=== PATIENT | male | born 1960 | race Caucasian/White ===

== ENCOUNTER 2017-03-29 13:02 | Emergency (ER) | payer SELFPAY ==
[~2017-03-29 13:02] MED LIST: BACT800T5 PO; CEPH500T PO
[2017-03-29 13:05] VITALS: BP 121/60; PULSE 98; RESP 15; TEMP 98.2; O2SAT 99
--- NOTE | 2017-03-29 13:11 | PD ---
Physical Exam Date Seen by Provider: Mar 29, 2017 Time Seen by Provider: 13:09 Narrative 56-year-old male presents to [facility] department with injury to the right second and third toes after "dropping a log on it" proximal to weeks ago. Patient feels that they may be infected. Pain is getting worse with increased swelling, erythema, and pus. Pain is currently an 8 out of 10. He denies fever or chills. He has no known drug allergies. Vital signs are stable. Patient is awaiting med bed placement. Data Data Last Documented VS Vital Signs Date Time Temp Pulse Resp B/P (MAP) Pulse Ox O2 Delivery O2 Flow Rate FiO2 03/29/17 13:05 98.2 98 15 121/60 (80) 99 MDM Medical Record Reviewed: Yes Supervised Visit with RTUDY: Yes Condition: Stable Carl Hall Mar 29, 2017 13:11
--- NOTE | 2017-03-29 13:24 | PD ---
HPI Chief Complaint: Skin Problem Time Seen by Provider: 13:18 Travel History International Travel<30 days: No Contact w/Intl Traveler<30days: No Traveled to known affect area: No History of Present Illness HPI Patient comes in complaining of worsening pain over the second and third toe right lower extremity after dropping a tree branch on it 2 weeks ago. He states he thought it would be fine however pain is getting progressively worse. Patient states he tried taking 2 ibuprofen for this with minimal relief of his symptoms. Pain is worse with walking. Patient reports pain is burning sensation radiates proximally. Patient thinks it may have drained some pus, but is uncertain. Patient is uncertain of his last tetanus shot. Denies any fevers or other known trauma. PFSH Past Medical History Hx Anticoagulant Therapy: No Arthritis: Yes (PT. STATED,"I HAVE A LITTLE ARTHRITIS IN MY LEFT ELBOW".) Asthma: No Autoimmune Disease: No Blood Disorders: No Heart Rhythm Problems: No Cancer: No Cardiovascular Problems: No High Cholesterol: No Chemotherapy: No Chest Pain: No Congestive Heart Failure: No COPD: No Cerebrovascular Accident: No Diabetes: No Diminished Hearing: Yes Gastrointestinal Disorders: No GERD: No Glaucoma: No Genitourinary: No Headaches: No Hepatitis: No Hiatal Hernia: No Heparin Induced Thrombocytopen: No Hypertension: No Immune Disorder: No Kidney Stones: No Musculoskeletal: Yes Neurologic: No Psychiatric: No Reproductive: No Respiratory: No Migraines: No Myocardial Infarction: No Radiation Therapy: No Renal Failure: No Seizures: No Sickle Cell Disease: No Sleep Apnea: No Thyroid Disease: No Ulcer: No Past Surgical History Abdominal Surgery: No AICD: No Appendectomy: No Arteriovenous Shunt: No Cardiac Surgery: No Cholecystectomy: No Endocrine Surgery: No Eye Surgery: No Genitourinary Surgery: No Gynecologic Surgery: No Insulin Pump: No Joint Replacement: No Neurologic Surgery: No Oral Surgery: No Pacemaker: No Thoracic Surgery: No Other Surgery: Yes (PT. STATED, "IN 2002 I HAD SURGER ON MY RIGHT INDEX FINGER ". ) Social History Alcohol Use: Yes (PT. STATED, "I HAVE A COUPLE OF BEERS A DAY".) Tobacco Use: Yes (PT. STATED,"I SMOKE A PACK OF CIGARETTES A DAY". ) Substance Use: No Allergies-Medications (Allergen,Severity, Reaction): Coded Allergies: No Known Allergies (Verified , 03/29/17) Reported Meds & Prescriptions Reported Meds & Active Scripts Active Naprosyn (Naproxen) 500 Mg Tab 500 Mg PO Q12HR PRN Keflex (Cephalexin) 500 Mg Cap 500 Mg PO Q8H Bactrim DS (Sulfamethoxazole-Trimethoprim) 800-160 Mg Tab 1 Tab PO BID Cephalexin 500 Mg Tab 500 Mg PO Q6H Bactrim DS (Sulfamethoxazole-Trimethoprim) 800-160 Mg Tab 1 Tab PO BID Review of Systems Except as stated in HPI: all other systems reviewed are Neg Physical Exam Narrative GENERAL: Well-developed, well nourished, in no acute distress, and non-ill appearing. SKIN: Focused skin assessment warm and dry. Patient has 2 healing lesions noted at the dorsal aspect of the second and third toe. There is mild erythematous noted. There is no crepitus or drainage. No fluctuation or induration. Patient reports tenderness to palpation. Neurovascular intact distally. HEAD: Atraumatic. Normocephalic. EYES: Pupils equal and round. EOMI. No scleral icterus. No injection or drainage. ENT: No nasal bleeding or discharge. Mucous membranes pink and moist. NECK: Trachea midline. Supple. No nuclear rigidity. CARDIOVASCULAR: Dorsal pulses 2+, intact, and equal bilaterally. Capillary refill less than 2 seconds. RESPIRATORY: No accessory muscle use. No respiratory distress. MUSCULOSKELETAL: No obvious deformities. No clubbing. No cyanosis. No edema. Full range of motion. NEUROLOGICAL: Awake and alert. No obvious cranial nerve deficits. Motor grossly within normal limits. Normal speech. PSYCHIATRIC: Appropriate mood and affect; insight and judgment normal. Data Data Last Documented VS Vital Signs Date Time Temp Pulse Resp B/P (MAP) Pulse Ox O2 Delivery O2 Flow Rate FiO2 03/29/17 14:20 03/29/17 13:05 98.2 98 15 99 Orders Orders Clindamycin Inj (Cleocin Inj) (03/29/17 13:30) Tetanus/Diphtheria Tox Adult (Tetanus/Di (03/29/17 13:30) Foot, Complete ([id number]) (03/29/17 ) [facility] Medical Decision Making Medical Screen Exam Complete: Yes Emergency Medical Condition: Yes Interpretation(s) Right foot x-ray read by the radiologist shows: No acute findings. Mild osteoarthritis of the right foot. Differential Diagnosis Osteomyelitis, gangrene, necrotizing fasciitis, wound infection, cellulitis, abscess, other Narrative Course The patient has cellulitis of his toes. There is no evidence of necrotizing fasciitis at this time. There is no evidence of abscess. There is no evidence of local joint space involvement. There is no evidence of deep venous thrombosis. The patient will be discharged on antibiotics. The patient was given signs and symptoms warnings for worsening infection, such as spreading of redness, increasing pain, and/or swelling, associated heat, or fever and instructed to return immediately if these signs or symptoms worsen. The patient is to follow up with physician in 2 days for recheck or return here in 2 days for recheck if unable to establish outpatient follow up. Sooner if worsens or as needed. The patient agrees with plan. Patient in no obvious distress upon re-evaluation. Radiology result(s) discussed with patient. Patient was asked if they wanted to speak to my attending, which the patient did not wish to do at this time. Any questions/ concerns in reference to patient diagnosis/condition discussed and clarified prior to patient's discharge. Reinforced sheer importance of close follow up with patient's primary physician or primary care clinic or return here in 2 days for recheck. Instructed patient to return to ED immediately, if symptoms return/worsen. Pt showed understanding of above instructions. Further instructions and recommendations were detailed in discharge paperwork. Pt ambulated without difficulty out of ED at discharge. Diagnosis Primary Impression: Wound infection Patient Instructions: Acute Wounds (ED), Cellulitis (ED), General Instructions Additional Instructions: Follow-up with your primary care physician or return here in 2 days for recheck. Take all medication as prescribed. Keep wound dry and clean as possible using soap and water. Use Neosporin to promote healing. Do not soak or submerge wounds. Return to the emergency department if symptoms get worse. Med/Other Pt SpecificInfo: Prescription(s) given Scripts Naproxen (Naprosyn) 500 Mg Tab 500 MG PO Q12HR Y for PAIN SCALE 1 TO 10, #14 TAB 0 Refills Prov: Edwardo Khan MD 03/29/17 Cephalexin (Keflex) 500 Mg Cap 500 MG PO Q8H for Infection, #30 CAP 0 Refills Prov: Edwardo Khan MD 03/29/17 Sulfamethoxazole-Trimethoprim (Bactrim DS) 800-160 Mg Tab 1 TAB PO BID for Infection, #20 TAB 0 Refills Prov: Edwardo Khan MD 03/29/17 Disposition: 01 DISCHARGE HOME Condition: Stable Souleymane Nunes Mar 29, 2017 13:24
[2017-03-29] MEDS ORDERED: CLINDAMYCIN PHOS 600 MG/4 ML VIAL IM ONE (13:30)
[2017-03-29] MEDS ORDERED: TETANUS/DIPHTHERIA TOXOID ADULT 0.5 ML VIAL IM ONE (13:30)
--- NOTE | 2017-03-29 14:02 | RADRPT ---
EXAM DATE/TIME: 03/29/2017 13:39 [facility] COMPARISON: No previous studies available for comparison. INDICATIONS : Right foot pain after tree limb fell on foot two weeks ago. MEDICAL HISTORY : None. SURGICAL HISTORY : None. ENCOUNTER: Initial ACUITY: 2 weeks PAIN SCORE: 7/10 LOCATION: Right entire foot. FINDINGS: Three view examination of the right foot demonstrates no soft tissue swelling, dislocation, or fractu re. The tarsal bones appear intact. The interphalangeal and metatarsophalangeal joints are intact. The calcaneus is intact. Bony mineralization is normal. CONCLUSION: 1. No acute findings. Mild osteoarthritis of the right foot. Lee Guevara MD on March 29, 2017 at 13:57 Board Certified Radiologist. This report was verified electronically.
[2017-03-29] MEDS ORDERED: CEPH-460 PO (14:13)
[2017-03-29] MEDS ORDERED: BACT800T5 PO (14:13)
[2017-03-29] MEDS ORDERED: NAPR500 PO (14:13)
== END 2017-03-29 14:32 | disposition home or self-care (01) ==
LOC: NEPK 13:02
DX: L03.031 Cellulitis of right toe (principal); M19.071 Primary osteoarthritis, right ankle and foot; M13.822 Other specified arthritis, left elbow; Z23 Encounter for immunization
CPT/HCPCS: 73630; 90471; 90714; 96372

== ENCOUNTER 2017-04-16 00:19 | Emergency (ER) | payer SELFPAY ==
[~2017-04-16] VITALS: Ht 170.2 cm; Wt 54.5 kg
[~2017-04-16 00:19] MED LIST changes: +CEPH-460 PO; +NAPR500 PO
[2017-04-16 00:20] VITALS: BP 125/76; PULSE 91; RESP 15; TEMP 98.6; O2SAT 99
[2017-04-16 00:22] VITALS: BP 90/63; PULSE 92; RESP 18; TEMP 97.8; O2SAT 95
--- NOTE | 2017-04-16 02:25 | PD ---
HPI Chief Complaint: Skin Problem Time Seen by Provider: 01:36 Travel History International Travel<30 days: No Contact w/Intl Traveler<30days: No Traveled to known affect area: No History of Present Illness HPI The patient is a 56 year old male who presents to the [facility] emergency department with a history of right third digit pain that began 3 weeks ago. He was trimming some trees and a tree branch fell onto his foot. He was seen in the emergency department regarding this. An x-ray was done which showed no evidence of fracture. The patient reports that he was treated with a course of antibiotic on March 29. He reports that he was given 2 prescriptions, however only 1 of the prescriptions he could fill as it was free. The patient reports that the other prescription he could not afford. He reports that it seemed to be improving on antibiotic. It began to hurt again yesterday and he cannot put his foot in a shoe. On review of systems, the patient denies any recent fevers, cough, congestion, neck pain, chest pain, shortness of breath, abdominal pain, vomiting, diarrhea, urinary symptoms, or neurologic symptoms. [facility] Past Medical History Narrative Medical The patient's past medical history is significant for arthritis, tobacco use. Hx Anticoagulant Therapy: No Arthritis: Yes (PT. STATED,"I HAVE A LITTLE ARTHRITIS IN MY LEFT ELBOW".) Asthma: No Autoimmune Disease: No Blood Disorders: No Heart Rhythm Problems: No Cancer: No Cardiovascular Problems: No High Cholesterol: No Chemotherapy: No Chest Pain: No Congestive Heart Failure: No COPD: No Cerebrovascular Accident: No Diabetes: No Diminished Hearing: Yes Gastrointestinal Disorders: No GERD: No Glaucoma: No Genitourinary: No Headaches: No Hepatitis: No Hiatal Hernia: No Heparin Induced Thrombocytopen: No Hypertension: No Immune Disorder: No Kidney Stones: No Musculoskeletal: Yes Neurologic: No Psychiatric: No Reproductive: No Respiratory: No Migraines: No Myocardial Infarction: No Radiation Therapy: No Renal Failure: No Seizures: No Sickle Cell Disease: No Sleep Apnea: No Thyroid Disease: No Ulcer: No Past Surgical History Narrative Surgical The patient's past surgical history is significant for having a right index finger reattached. Abdominal Surgery: No AICD: No Appendectomy: No Arteriovenous Shunt: No Cardiac Surgery: No Cholecystectomy: No Endocrine Surgery: No Eye Surgery: No Genitourinary Surgery: No Gynecologic Surgery: No Insulin Pump: No Joint Replacement: No Neurologic Surgery: No Oral Surgery: No Pacemaker: No Thoracic Surgery: No Other Surgery: Yes (RIGHT INDEX FINGER REATTACHMENT) Social History Alcohol Use: Yes (drinks a couple of beers 2 x per week.) Tobacco Use: Yes (1/2-1PPD) Substance Use: No Allergies-Medications (Allergen,Severity, Reaction): Coded Allergies: No Known Allergies (Verified , 04/16/17) Reported Meds & Prescriptions Reported Meds & Active Scripts Active Naprosyn (Naproxen) 500 Mg Tab 500 Mg PO Q12HR PRN Keflex (Cephalexin) 500 Mg Cap 500 Mg PO Q8H Bactrim DS (Sulfamethoxazole-Trimethoprim) 800-160 Mg Tab 1 Tab PO BID Cephalexin 500 Mg Tab 500 Mg PO Q6H Bactrim DS (Sulfamethoxazole-Trimethoprim) 800-160 Mg Tab 1 Tab PO BID Review of Systems Except as stated in HPI: all other systems reviewed are Neg General / Constitutional: No: Fever Eyes: No: Visual changes HENT: No: Headaches Cardiovascular: No: Chest Pain or Discomfort Respiratory: No: Shortness of Breath Gastrointestinal: No: Nausea, Vomiting, Diarrhea, Abdominal Pain Genitourinary: No: Dysuria Musculoskeletal: No: Pain Skin: Positive Other (right 2nd toe pain), No Rash Neurologic: No: Weakness, Focal Abnormalities, Change in Mentation, Slurred Speech, Sensory Disturbance Psychiatric: No: Depression Endocrine: No: Polydipsia Hematologic/Lymphatic: No: Easy Bruising Physical Exam Narrative General: The patient is a well-developed well-nourished male in no acute distress. Head and Neck exam: Head is normocephalic atraumatic. Eyes: EOMI, pupils are equal round and reactive to light. Nose: Midline septum with pink mucous membranes Mouth: Dentition unremarkable. Moist mucus membranes. Posterior oropharynx is not erythematous. No tonsillar hypertrophy. Uvula midline. Airway patent. Neck: No palpable lymphadenopathy. No nuchal rigidity. No thyromegaly. Cardiovascular: Regular rate and rhythm without murmurs, gallops, or rubs. Lungs: Clear to auscultation bilaterally. No wheezes, rhonchi, or rales. Abdomen: Soft, without tenderness to palpation in all 4 quadrants of the abdomen. No guarding, rebound, or rigidity. Normal bowel sounds are audible. No tenderness on palpation of McBurney's point. Extremities: No clubbing, cyanosis, or edema. 2+ pulses in all 4 extremities. The area of interest is the patient's right second toe. The patient is noted to have superficial area of ulceration with a small rim of erythema surrounding it overlying the dorsal aspect of the second toe, PIP joint. The patient has no pain with range of motion of this toe. Is no extending erythema or edema. Back: No costovertebral angle tenderness to palpation. Neurologic Exam: Grossly nonfocal. Skin Exam: No rash noted. Data Data Last Documented VS Vital Signs Date Time Temp Pulse Resp B/P (MAP) Pulse Ox O2 Delivery O2 Flow Rate FiO2 04/16/17 03:03 90 16 153/88 (109) 98 Room Air 04/16/17 00:22 97.8 Orders Orders Electrocardiogram (04/16/17 02:20) Complete Blood Count With Diff (04/16/17 02:20) Comprehensive Metabolic Panel (04/16/17 02:20) Prothrombin Time / Inr (Pt) (04/16/17 02:20) Act Partial Throm Time (Ptt) (04/16/17 02:20) Blood Culture (04/16/17 02:20) C-Reactive Protein (Crp) (04/16/17 02:20) Lipase (04/16/17 02:20) Urinalysis - C+S If Indicated (04/16/17 02:20) Chest, Single Ap (04/16/17 02:20) Iv Access Insert/Monitor (04/16/17 02:20) Ecg Monitoring (04/16/17 02:20) Oximetry (04/16/17 02:20) Lactic Acid Sepsis Protocol (04/16/17 02:20) Sodium Chlor 0.9% 1000 Ml Inj (Ns 1000 M (04/16/17 02:30) Piperacil-Tazo 3.375 Gm Premix (Zosyn 3. (04/16/17 02:30) Vancomycin Inj (Vancomycin Inj) (04/16/17 02:30) Wound Culture And Gram Stain (04/16/17 03:20) Ketorolac Inj (Toradol Inj) (04/16/17 03:30) Wound Care (10/9/17 03:22) Labs Laboratory Tests Test 04/16/17 02:40 04/16/17 02:45 White Blood Count 6.9 TH/MM3 Red Blood Count 3.34 MIL/MM3 Hemoglobin 11.5 GM/DL Hematocrit 33.8 % Mean Corpuscular Volume 101.0 FL Mean Corpuscular Hemoglobin 34.4 PG Mean Corpuscular Hemoglobin Concent 34.0 % Red Cell Distribution Width 14.8 % Platelet Count 228 TH/MM3 Mean Platelet Volume 8.2 FL Neutrophils (%) (Auto) 53.5 % Lymphocytes (%) (Auto) 31.7 % Monocytes (%) (Auto) 12.6 % Eosinophils (%) (Auto) 1.0 % Basophils (%) (Auto) 1.2 % Neutrophils # (Auto) 3.7 TH/MM3 Lymphocytes # (Auto) 2.2 TH/MM3 Monocytes # (Auto) 0.9 TH/MM3 Eosinophils # (Auto) 0.1 TH/MM3 Basophils # (Auto) 0.1 TH/MM3 CBC Comment DIFF FINAL Differential Comment Prothrombin Time 12.0 SEC Prothromb Time International Ratio 1.1 RATIO Activated Partial Thromboplast Time 31.5 SEC Blood Urea Nitrogen 6 MG/DL Creatinine 0.43 MG/DL Random Glucose 95 MG/DL Total Protein 7.8 GM/DL Albumin 2.8 GM/DL Calcium Level 8.5 MG/DL Alkaline Phosphatase 103 U/L Aspartate Amino Transf (AST/SGOT) 340 U/L Alanine Aminotransferase (ALT/SGPT) 272 U/L Total Bilirubin 0.7 MG/DL Sodium Level 140 MEQ/L Potassium Level 3.8 MEQ/L Chloride Level 106 MEQ/L Carbon Dioxide Level 28.9 MEQ/L Anion Gap 5 MEQ/L Estimat Glomerular Filtration Rate 204 ML/MIN Lactic Acid Level 1.5 mmol/L C-Reactive Protein LESS THAN 0.29 MG/DL Lipase 681 U/L Urine Color LIGHT-YELLOW Urine Turbidity CLEAR Urine pH 6.0 Urine Specific [place] 1.004 Urine Protein NEG mg/dL Urine Glucose (UA) NEG mg/dL Urine Ketones NEG mg/dL Urine Occult Blood NEG Urine Nitrite NEG Urine Bilirubin NEG Urine Urobilinogen LESS THAN 2.0 MG/DL Urine Leukocyte Esterase NEG Urine WBC LESS THAN 1 /hpf Microscopic Urinalysis Comment CULT NOT INDICATED MDM Medical Decision Making Medical Screen Exam Complete: Yes Emergency Medical Condition: Yes Medical Record Reviewed: Yes Interpretation(s) Last Impressions Chest X-Ray 04/16/17 0220 Signed Impressions: Service Date/Time: Sunday, April 16, 2017 02:31 - CONCLUSION: No acute disease. Pedro Wang MD Differential Diagnosis Cellulitis, versus sepsis Narrative Course During the course of the patients emergency department visit, the patients history, examination, and differential diagnosis were reviewed with the patient. The patient had IV access obtained and blood work sent for analysis. 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 The patient had an ECG done on arrival that shows a sinus rhythm heart rate of 86, no acute ST segment elevation. No acute ST segment depression. The patient on arrival had an initial blood pressure of 125/76, however repeat blood pressure 2 minutes later was documented at 90/63. Given the patient's wound there was a concern for sepsis. A lactic acid and blood cultures 2 were sent, however on further questioning of the patient's nurse. She reports that she did not get this blood pressure. She then checked the patient's blood pressure and it was noted to be 153/88. The patient was initially provided normal saline 1 L IV fluid bolus, Zosyn 3.375 g IV, vancomycin 1 g IV. The patient was given Toradol 15 mg IV for pain. The patients laboratory studies were reviewed and remarkable for a CBC with a white count of 6.9, hemoglobin 11.5, platelets 228 with 12.6 monocytes, CMP is remarkable for BUN of 6, creatinine 0.43, AST 340, ALT to 72, lactic acid 1.5, albumin 2.8, lipase 681. Urinalysis is within normal limits. The patient was reexamined. The patient denies having any abdominal pain. The patient reports that he only drinks alcohol twice a week. 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 I recommended that he discontinue alcohol use. The patient was also instructed that in order to increase the healing process and the wound on his foot he should quit smoking. Radiology studies were reviewed and remarkable for a chest x-ray that shows no acute cardiopulmonary disease. The patient was given a prescription for Keflex and Bactrim. The patient is instructed to follow-up for reexamination and 2 days either in the emergency department or with a primary care physician. The patient is resting comfortably and feels better, is alert and in no distress. The patients results and examination findings were discussed with the patient. The repeat examination is unremarkable and benign. The history, exam, diagnostic testing, and current condition do not suggest any significant pathology to warrant further testing, continued ED treatment, admission, or surgical evaluation at this point. The vital signs have been stable. The patient does not have uncontrollable pain, intractable vomiting, or other significant symptoms. The patient's condition is stable and appropriate for discharge. The patient will pursue further outpatient evaluation with a primary care physician or other designated or consulting physician as indicated in the discharge instructions. The patient expressed understanding and was agreeable with this plan. Diagnosis Primary Impression: Abrasion of second toe, right, infected Qualified Codes: S90.414D - Abrasion, right lesser toe(s), subsequent encounter; L08.9 - Local infection of the skin and subcutaneous tissue, unspecified Referrals: [facility] 2 days Patient Instructions: Cellulitis (ED), General Instructions Med/Other Pt SpecificInfo: Prescription(s) given Scripts Cephalexin (Keflex) 500 Mg Cap 500 MG PO Q6H for Infection, #40 CAP 0 Refills Prov: Elmira Garcia MD 04/16/17 Sulfamethoxazole-Trimethoprim (Bactrim DS) 800-160 Mg Tab 1 TAB PO BID for Infection, #20 TAB 0 Refills Prov: Elmira Garcia MD 04/16/17 Disposition: 01 DISCHARGE HOME Condition: Stable Elmira Garcia MD Apr 16, 2017 02:25
[2017-04-16] MEDS ORDERED: PIPERACIL-TAZO 3.375 GM PREMIX 50 ML IV ONE (02:30)
[2017-04-16] MEDS ORDERED: VANCOMYCIN INJ 1,000 MG in SODIUM CHLOR 0.9% 250 ML INJ 250 ML IV ONE (02:30)
[2017-04-16] MEDS ORDERED: SODIUM CHLOR 0.9% 1000 ML INJ 1,000 ML IV ONE (02:30)
[2017-04-16 02:55] LABS: AUTOMATED NEUTROPHIL # 3.7 TH/MM3 (1.8-7.7); BASOPHIL # 0.1 TH/MM3 (0-0.2); BASOPHIL % 1.2 % (0.0-2.0); EOSINOPHIL # 0.1 TH/MM3 (0-0.4); HEMATOCRIT 33.8 % (39.0-51.0); HEMO FLAGS DIFF FINAL; LYMPH % 31.7 % (9.0-44.0); LYMPHOCYTE # 2.2 TH/MM3 (1.0-4.8); MEAN CORPUSCULAR HEMOGLOBIN 34.4 PG (27.0-34.0); MONO % 12.6 % (0.0-8.0); NEUT % 53.5 % (16.0-70.0); PLATELET COUNT 228 TH/MM3 (150-450); RED BLOOD COUNT 3.34 MIL/MM3 (4.50-5.90); RED CELL DISTRIBUTION WIDTH 14.8 % (11.6-17.2); WHITE BLOOD COUNT 6.9 TH/MM3 (4.0-11.0)
[2017-04-16 02:57] LABS: BLOOD, URINE NEG (NEG); GLUCOSE,URINE NEG (NEG); KETONE, URINE NEG (NEG); NITRITE,URINE NEG (NEG); URINE COLOR LIGHT-YELLOW (YELLW/STRAW)
[2017-04-16 03:00] VITALS: O2SAT 99
[2017-04-16 03:03] VITALS: BP 153/88; PULSE 90; RESP 16; O2SAT 98
[2017-04-16 03:04] LABS: COMMENT (UR) CULT NOT INDICATED; CULTURE IF INDICATED CULT NOT INDICATED
--- NOTE | 2017-04-16 03:04 | RADRPT ---
EXAM DATE/TIME: 04/16/2017 02:31 [facility] COMPARISON: CHEST SINGLE AP, November 09, 2012, 15:39. INDICATIONS : Right foot infection. MEDICAL HISTORY : None. SURGICAL HISTORY : None. ENCOUNTER: Initial ACUITY: 1 day PAIN SCORE: 0/10 LOCATION: Bilateral chest FINDINGS: A single view of the chest demonstrates the lungs to be symmetrically aerated without evidence of mas s, infiltrate or effusion. The cardiomediastinal contours are unremarkable. Osseous structures are intact. CONCLUSION: No acute disease. Pedro Wang MD on April 16, 2017 at 3:01 Board Certified Radiologist. This report was verified electronically.
[2017-04-16 03:07] LABS: APTT (PATIENT) 31.5 SEC (24.3-30.1); INTERNATIONAL NORMALIZED RATIO 1.1 RATIO
[2017-04-16 03:17] LABS: ALT (GPT) 272 U/L (12-78); ANION GAP 5 MEQ/L (5-15); AST (GOT) 340 U/L (15-37); BICARBONATE 28.9 MEQ/L (21.0-32.0); BLOOD UREA NITROGEN 6 MG/DL (7-18); CHLORIDE 106 MEQ/L (98-107); GLOMERULAR FILTRATION RATE 204 ML/MIN (>89); POTASSIUM 3.8 MEQ/L (3.5-5.1); SODIUM (NA) 140 MEQ/L (136-145)
[2017-04-16 03:19] LABS: ALKALINE PHOSPHATASE 103 U/L (45-117); TOTAL BILIRUBIN ADULT 0.7 MG/DL (0.2-1.0)
[2017-04-16] MEDS ORDERED: KETOROLAC TROMETHAMINE 30 MG/ML (IVP) VIAL IV PUSH ONE (03:30)
[2017-04-16] MEDS ORDERED: BACT800T5 PO (04:15)
[2017-04-16] MEDS ORDERED: CEPH-460 PO (04:15)
[2017-04-16 05:00] VITALS: BP 142/77; PULSE 80; RESP 16; O2SAT 100
--- NOTE | 2017-04-16 12:48 | EKG ---
Date Performed: 04/16/2017 Time Performed: 02:56:59 PTAGE: 56 years EKG: Sinus rhythm NORMAL ECG Compared to prior tracing no significant change PREVIOUS TRACING : 11/17/2009 00.06 DOCTOR: Lonny Mejia Interpretating Date/Time 04/16/2017 12:46:25
== END 2017-04-16 05:20 | disposition home or self-care (01) ==
LOC: NEPC 00:19
DX: S90.414D Abrasion, right lesser toe(s), subsequent encounter (principal); L08.9 Local infection of the skin and subcutaneous tissue, unspecified; H91.90 Unspecified hearing loss, unspecified ear; F17.200 Nicotine dependence, unspecified, uncomplicated; Z87.39 Personal history of other diseases of the musculoskeletal system and connective tissue; W20.8XXD Other cause of strike by thrown, projected or falling object, subsequent encounter
CPT/HCPCS: 71010; 80053; 81001; 83605; 83690; 85025; 85610; 85730; 86140; 86403; 87040; 87070; 93005; 96374; 96375; 99285; J1885; J2543; J3370; J7030; J7050